=== PATIENT | male | born 1965 | race Caucasian/White ===

== ENCOUNTER 2017-04-06 17:13 | Emergency (ER) | payer OTHER ==
[~2017-04-06] VITALS: Ht 175.3 cm; Wt 95.2 kg
[~2017-04-06 17:13] MED LIST: ALBU90OI INH; AZIT250 PO; CODGUAEL PO; DIAZ5 PO; DOCU100 PO; GABA100 PO; HYDACE5325 PO; HYDCOR2.5A PR; HYDR1TAB94 PO; Keflex500 MG PO; LEVFLO500 PO; LIDO2L MM; METPRE4DP PO; MONDOXYNE NL100 MG PO; Monodox100 MG PO; NAPR500 PO; Nix Lice Treatm59 ML TOP; Norco 5-325 Ta1 EACH PO; OXYACE5T PO; PRED20 PO; PRODEXEL PO; Prednisone20 MG PO; SPACE CHAMBER1 EACH MC; Zithromax250 MG PO
[2017-04-06] MEDS ORDERED: (None)20 M1 PO (19:20)
[2017-04-06] MEDS ORDERED: Zithromax250 MG PO (19:20)
[2017-04-06] MEDS ORDERED: ALBU90OI INH (19:20)
== END 2017-04-06 19:28 | disposition home or self-care (01) ==
LOC: ER 17:13
DX: J44.9 Chronic obstructive pulmonary disease, unspecified (principal); Z90.49 Acquired absence of other specified parts of digestive tract; F17.200 Nicotine dependence, unspecified, uncomplicated
CPT/HCPCS: 71046; 99283

== ENCOUNTER 2017-05-07 19:23 | Emergency (ER) | payer SELFPAY ==
[~2017-05-07] VITALS: Ht 175.3 cm; Wt 93.0 kg
[~2017-05-07 19:23] MED LIST changes: +(None)20 M1 PO
== END 2017-05-07 22:20 | disposition home or self-care (01) ==
LOC: ER 19:23
DX: S06.0X0A Concussion without loss of consciousness, initial encounter (principal); S13.9XXA Sprain of joints and ligaments of unspecified parts of neck, initial encounter; F17.210 Nicotine dependence, cigarettes, uncomplicated; Z86.19 Personal history of other infectious and parasitic diseases; Z90.49 Acquired absence of other specified parts of digestive tract; Z90.89 Acquired absence of other organs; V49.9XXA Car occupant (driver) (passenger) injured in unspecified traffic accident, initial encounter
CPT/HCPCS: 70450; 72125; 96372; 99284; J1885; L0160; Q0163

== ENCOUNTER 2017-05-14 17:17 | Emergency (ER) | payer OTHER ==
[~2017-05-14] VITALS: Ht 175.3 cm; Wt 95.2 kg
[2017-05-14] MEDS ORDERED: Nystatin15 GM TOP (17:56)
== END 2017-05-14 18:05 | disposition home or self-care (01) ==
LOC: ER 17:17
DX: N47.6 Balanoposthitis (principal); B37.49 Other urogenital candidiasis; F17.210 Nicotine dependence, cigarettes, uncomplicated; Z86.19 Personal history of other infectious and parasitic diseases; Z90.49 Acquired absence of other specified parts of digestive tract
CPT/HCPCS: 99283

== ENCOUNTER 2017-05-20 17:02 | Emergency (ER) | payer OTHER ==
[~2017-05-20 17:02] MED LIST changes: +Nystatin15 GM TOP
== END 2017-05-20 18:43 | disposition left against medical advice (07) ==
LOC: ER 17:02
DX: Z53.21 Procedure and treatment not carried out due to patient leaving prior to being seen by health care provider (principal)

== ENCOUNTER 2017-05-22 15:41 | Emergency (ER) | payer OTHER ==
[~2017-05-22] VITALS: Ht 175.3 cm; Wt 95.2 kg
[2017-05-22] MEDS ORDERED: Bactrim Ds Tab1 EACH PO (16:25)
== END 2017-05-22 16:45 | disposition home or self-care (01) ==
LOC: ER 15:41
DX: L03.011 Cellulitis of right finger (principal); F17.210 Nicotine dependence, cigarettes, uncomplicated; Z86.19 Personal history of other infectious and parasitic diseases
CPT/HCPCS: 29130; 99282

== ENCOUNTER 2017-06-29 22:22 | Emergency (ER) | payer OTHER ==
[~2017-06-29] VITALS: Ht 175.3 cm; Wt 95.2 kg
[~2017-06-29 22:22] MED LIST changes: +Bactrim Ds Tab1 EACH PO
[2017-06-29 23:15] LABS: Source, Urine Clean Catch
[2017-06-29 23:17] LABS: Bilirubin, Urine Neg (Neg); Blood, Urine 4+ (Neg); Glucose Qualitative, Urine Neg (Neg); Ketones, Urine Neg (Neg); Leukocyte Esterase, Urine Neg (Neg); Nitrite, Urine Neg (Neg); Protein, Urine 1+ (Neg); Specific Gravity, Urine 1.025 (1.003-1.022); Urobilinogen, Urine 1+ (Normal)
[2017-06-29 23:26] LABS: Appearance, Urine Hazy (Clear); Bacteria Not Seen /hpf; Color, Urine Yellow (P-Yellow); Mucus Mod (0-Heavy); Red Blood Cells, Urine 25-50 /hpf (0-2); Squamous Epithelial Cells Not Seen /hpf (Few); White Blood Cells, Urine Not Seen /hpf (0-5)
[2017-06-29 23:37] LABS: BASOPHILS ABSOLUTE AUTO 0.05 K/mm3 (0.00-0.23); BASOPHILS PERCENT AUTO 1 % (0-2); EOSINOPHILS ABSOLUTE AUTO 0.58 K/mm3 (0.00-0.68); EOSINOPHILS PERCENT AUTO 8 % (0-6); Hematocrit 44.6 % (37.0-53.0); Hemoglobin 15.5 g/dL (13.5-17.5); IMMATURE GRAN ABSOLUTE AUTO 0.05 K/mm3 (0.00-0.10); IMMATURE GRAN PERCENT AUTO 1 % (0-1); LYMPHOCYTES PERCENT AUTO 34 % (21-46); MONOCYTES ABSOLUTE AUTO 0.46 K/mm3 (0.16-1.47); MONOCYTES PERCENT AUTO 6 % (4-13); Mean Corpuscular HGB 32.4 pg (26.0-34.0); Mean Corpuscular HGB Conc 34.8 g/dL (31.5-36.5); Mean Corpuscular Volume 93 fL (80-100); Mean Platelet Volume 9.5 fL (9.1-12.4); NEUTROPHILS ABSOLUTE AUTO 3.77 K/mm3 (1.96-9.15); NEUTROPHILS PERCENT AUTO 51 % (41-73); Platelet Count 200 K/mm3 (150-400); RDW Coefficient Variation 12.1 % (11.7-14.2); RDW Standard Deviation 41.9 fL (35.1-46.3); Red Blood Cell Count 4.78 M/mm3 (4.30-5.90); White Blood Cell Count 7.41 K/mm3 (4.00-11.30)
[2017-06-29 23:53] LABS: Anion Gap 9 mmol/L (6-16); Blood Urea Nitrogen 11 mg/dL (8-24); Bun/Creatinine Ratio 13.1 (12.0-20.0); CO2, Blood 26 mmol/L (21-32); Calcium, Blood 8.6 mg/dL (8.5-10.1); Chloride, Blood 106 mmol/L (98-108); Creatinine, Blood 0.84 mg/dL (0.60-1.20); Glomerular Filtration Rate >60 (60-); Glucose, Blood 83 mg/dL (70-99); Potassium, Blood 4.2 mmol/L (3.5-5.5); Sodium, Blood 141 mmol/L (136-145)
[2017-06-30] MEDS ORDERED: Vibramycin100 MG PO (01:07)
== END 2017-06-30 01:11 | disposition home or self-care (01) ==
LOC: ER 22:22
PROVIDERS: Emergency Medicine
DX: R31.9 Hematuria, unspecified (principal); A64 Unspecified sexually transmitted disease; F17.210 Nicotine dependence, cigarettes, uncomplicated
CPT/HCPCS: 80048; 81001; 85025; 96372; 99283; J0696

== ENCOUNTER 2017-08-27 11:19 | Emergency (ER) | payer OTHER ==
[~2017-08-27] VITALS: Ht 177.8 cm; Wt 99.8 kg
[~2017-08-27 11:19] MED LIST changes: +Vibramycin100 MG PO
== END 2017-08-27 12:42 | disposition home or self-care (01) ==
LOC: ER 11:19
DX: M25.462 Effusion, left knee (principal); F17.210 Nicotine dependence, cigarettes, uncomplicated; Z86.19 Personal history of other infectious and parasitic diseases; Z90.49 Acquired absence of other specified parts of digestive tract; Z98.890 Other specified postprocedural states
CPT/HCPCS: 99281

== ENCOUNTER 2017-09-26 11:13 | Emergency (ER) | payer OTHER ==
[~2017-09-26] VITALS: Ht 177.8 cm; Wt 108.9 kg
[2017-09-26] MEDS ORDERED: SLEEPING MEDICATION (11:44)
[2017-09-26] MEDS ORDERED: DEPRESSION (11:44)
[2017-09-26] MEDS ORDERED: CRUTCH4 XX (12:09)
[2017-09-26] MEDS ORDERED: CEPH500 PO (12:09)
== END 2017-09-26 12:12 | disposition home or self-care (01) ==
LOC: ER 11:13
DX: S90.32XA Contusion of left foot, initial encounter (principal); F17.210 Nicotine dependence, cigarettes, uncomplicated; F32.9 Major depressive disorder, single episode, unspecified; V29.9XXA Motorcycle rider (driver) (passenger) injured in unspecified traffic accident, initial encounter
CPT/HCPCS: 73630; 99283

== ENCOUNTER 2017-10-20 20:07 | Emergency (ER) | payer OTHER ==
[~2017-10-20] VITALS: Ht 177.8 cm; Wt 95.2 kg
[~2017-10-20 20:07] MED LIST changes: +CEPH500 PO; +CRUTCH4 XX; +DEPRESSION; +SLEEPING MEDICATION
[2017-10-20] MEDS ORDERED: Zithromax250 MG PO (22:27)
[2017-10-20] MEDS ORDERED: Ra Anti-Tussiv237 ML PO (22:27)
== END 2017-10-20 22:25 | disposition home or self-care (01) ==
LOC: ER 20:07
DX: J18.9 Pneumonia, unspecified organism (principal); Z79.899 Other long term (current) drug therapy; F17.210 Nicotine dependence, cigarettes, uncomplicated
CPT/HCPCS: 71046; 93005; 93010; 99283-25

== ENCOUNTER 2020-02-15 02:02 | Emergency (ER) | payer OTHER ==
[~2020-02-15] VITALS: Ht 175.3 cm; Wt 99.8 kg
[~2020-02-15 02:02] MED LIST changes: +Ra Anti-Tussiv237 ML PO
[2020-02-15] MEDS ORDERED: Norco 10-325 T1 EACH PO (03:54)
[2020-02-15] MEDS ORDERED: ONDA4ODT MM (03:54)
== END 2020-02-15 04:14 | disposition home or self-care (01) ==
LOC: ER 02:02
DX: S82.851A Displaced trimalleolar fracture of right lower leg, initial encounter for closed fracture (principal); F17.210 Nicotine dependence, cigarettes, uncomplicated; Z79.899 Other long term (current) drug therapy; V18.4XXA Pedal cycle driver injured in noncollision transport accident in traffic accident, initial encounter; Y93.55 Activity, bike riding; Y92.410 Unspecified street and highway as the place of occurrence of the external cause
CPT/HCPCS: 27818; 36415; 73600; 73610; 96374-59; 96375-59; 99152; 99283-25; A9270; A9270-GY; J1170; J1885; J2704; J7030

== ENCOUNTER 2020-02-21 15:17 | Emergency (ER) | payer OTHER ==
[~2020-02-21] VITALS: Ht 175.3 cm; Wt 99.8 kg
[~2020-02-21 15:17] MED LIST changes: +Norco 10-325 T1 EACH PO; +ONDA4ODT MM
== END 2020-02-21 17:00 | disposition home or self-care (01) ==
LOC: ER 15:17
DX: S82.851A Displaced trimalleolar fracture of right lower leg, initial encounter for closed fracture (principal); F17.210 Nicotine dependence, cigarettes, uncomplicated; Z79.899 Other long term (current) drug therapy; V19.9XXA Pedal cyclist (driver) (passenger) injured in unspecified traffic accident, initial encounter; Y92.410 Unspecified street and highway as the place of occurrence of the external cause
CPT/HCPCS: 99282

== ENCOUNTER 2020-02-27 10:38 | Day surgery (SDC) | payer OTHER ==
[~2020-02-27] VITALS: Ht 175.3 cm; Wt 101.7 kg
--- NOTE | 2020-02-27 11:37 | NUR ---
02/27/20 Stevo7 Sirisha Narayanan FIRST IV ATTEMPT IN LH. INFILTRATED.
== END 2020-02-27 16:40 | disposition home or self-care (01) ==
LOC: ORSCSDS 10:38
PROVIDERS: Podiatrist Foot & Ankle Surgery
PROC: 0QSJ04Z Reposition Right Fibula with Internal Fixation Device, Open Approach (ICD-10-PCS; principal; 2020-02-27 12:00)
PROC: 0QSG04Z Reposition Right Tibia with Internal Fixation Device, Open Approach (ICD-10-PCS; principal; 2020-02-27 12:00)
DX: S82.851A Displaced trimalleolar fracture of right lower leg, initial encounter for closed fracture (principal); I10 Essential (primary) hypertension; J45.909 Unspecified asthma, uncomplicated; F17.210 Nicotine dependence, cigarettes, uncomplicated; B19.20 Unspecified viral hepatitis C without hepatic coma
CPT/HCPCS: C1713; J0171; J0690; J1100; J1885; J2250; J2405; J2704; J3010; J7120

== ENCOUNTER 2020-03-08 11:37 | Emergency (ER) | payer OTHER ==
[~2020-03-08] VITALS: Ht 175.3 cm; Wt 99.8 kg
[2020-03-08 13:41] LABS: Alanine Aminotransfer (ALT/SGP 42 U/L (12-78); Albumin, Blood 2.4 g/dL (3.4-5.0); Albumin/Globulin Ratio 0.5 (0.8-1.8); Alk Phos 101 U/L (50-136); Anion Gap 7 mmol/L (6-16); Aspartate Aminotrans (AST/SGOT 34 U/L (12-37); Bilirubin, Total 0.3 mg/dL (0.1-1.0); Blood Urea Nitrogen 9 mg/dL (8-24); Bun/Creatinine Ratio 13.8 (12.0-20.0); CO2, Blood 27 mmol/L (21-32); Calcium, Blood 8.9 mg/dL (8.5-10.1); Chloride, Blood 97 mmol/L (98-108); Creatinine, Blood 0.65 mg/dL (0.60-1.20); Glomerular Filtration Rate >60 (60-); Glucose, Blood 125 mg/dL (70-99); Potassium, Blood 4.5 mmol/L (3.5-5.5); Sodium, Blood 131 mmol/L (136-145); Total Protein, Blood 7.4 g/dL (6.4-8.2)
[2020-03-08 14:14] LABS: BASOPHILS ABSOLUTE AUTO 0.06 K/mm3 (0.00-0.23); BASOPHILS PERCENT AUTO 1 % (0-2); EOSINOPHILS ABSOLUTE AUTO 0.22 K/mm3 (0.00-0.68); EOSINOPHILS PERCENT AUTO 2 % (0-6); Hematocrit 33.8 % (37.0-53.0); Hemoglobin 11.7 g/dL (13.5-17.5); IMMATURE GRAN ABSOLUTE AUTO 0.21 K/mm3 (0.00-0.10); IMMATURE GRAN PERCENT AUTO 2 % (0-1); LYMPHOCYTES ABSOLUTE AUTO 1.66 K/mm3 (0.84-5.20); LYMPHOCYTES PERCENT AUTO 13 % (21-46); MONOCYTES ABSOLUTE AUTO 1.29 K/mm3 (0.16-1.47); MONOCYTES PERCENT AUTO 10 % (4-13); Mean Corpuscular HGB 30.7 pg (26.0-34.0); Mean Corpuscular HGB Conc 34.6 g/dL (31.5-36.5); Mean Corpuscular Volume 89 fL (80-100); NEUTROPHILS ABSOLUTE AUTO 9.64 K/mm3 (1.96-9.15); NEUTROPHILS PERCENT AUTO 74 % (41-73); Platelet Count 540 K/mm3 (150-400); RDW Coefficient Variation 11.2 % (11.7-14.2); RDW Standard Deviation 36.1 fL (35.1-46.3); Red Blood Cell Count 3.81 M/mm3 (4.30-5.90); White Blood Cell Count 13.08 K/mm3 (4.00-11.30)
[2020-03-08] MEDS ORDERED: SULTRIDS PO ×2 (15:06→16:17)
[2020-03-08] MEDS ORDERED: OXYACE7.5T PO (15:06)
[2020-03-08] MEDS ORDERED: Percocet 7.5-31 EACH PO (16:18)
== END 2020-03-08 17:14 | disposition home or self-care (01) ==
LOC: ER 11:37
PROVIDERS: Physician Assistant
DX: T81.41XA Infection following a procedure, superficial incisional surgical site, initial encounter (principal); F17.210 Nicotine dependence, cigarettes, uncomplicated; Z96.698 Presence of other orthopedic joint implants
CPT/HCPCS: 36415; 73610; 80053; 85025; 87070; 87075; 87077; 87147; 87186; 87205; 96365; 96366; 96375; 96376; 99283-25; J1170; J2405; J3370; J7050

== ENCOUNTER 2020-03-10 09:31 | Inpatient (IN) | payer OTHER ==
[~2020-03-10] VITALS: Ht 175.3 cm; Wt 99.8 kg
[~2020-03-10 09:31] MED LIST changes: +OXYACE7.5T PO; +Percocet 7.5-31 EACH PO; +SULTRIDS PO
[2020-03-10 12:50] LABS: BASOPHILS ABSOLUTE AUTO 0.08 K/mm3 (0.00-0.23); BASOPHILS PERCENT AUTO 1 % (0-2); EOSINOPHILS ABSOLUTE AUTO 0.23 K/mm3 (0.00-0.68); EOSINOPHILS PERCENT AUTO 2 % (0-6); Hemoglobin 11.5 g/dL (13.5-17.5); IMMATURE GRAN PERCENT AUTO 3 % (0-1); LYMPHOCYTES ABSOLUTE AUTO 2.31 K/mm3 (0.84-5.20); LYMPHOCYTES PERCENT AUTO 18 % (21-46); MONOCYTES ABSOLUTE AUTO 1.06 K/mm3 (0.16-1.47); MONOCYTES PERCENT AUTO 8 % (4-13); Mean Corpuscular HGB 30.7 pg (26.0-34.0); Mean Corpuscular HGB Conc 33.8 g/dL (31.5-36.5); Mean Corpuscular Volume 91 fL (80-100); NEUTROPHILS ABSOLUTE AUTO 8.86 K/mm3 (1.96-9.15); NEUTROPHILS PERCENT AUTO 68 % (41-73); Platelet Count 546 K/mm3 (150-400); RDW Coefficient Variation 11.5 % (11.7-14.2); RDW Standard Deviation 38.1 fL (35.1-46.3); Red Blood Cell Count 3.75 M/mm3 (4.30-5.90); White Blood Cell Count 12.94 K/mm3 (4.00-11.30)
[2020-03-10 13:16] LABS: Alanine Aminotransfer (ALT/SGP 38 U/L (12-78); Albumin, Blood 2.7 g/dL (3.4-5.0); Albumin/Globulin Ratio 0.5 (0.8-1.8); Alk Phos 100 U/L (50-136); Anion Gap 9 mmol/L (6-16); Aspartate Aminotrans (AST/SGOT 34 U/L (12-37); Bilirubin, Total 0.4 mg/dL (0.1-1.0); Blood Urea Nitrogen 13 mg/dL (8-24); Bun/Creatinine Ratio 14.5 (12.0-20.0); CO2, Blood 24 mmol/L (21-32); Calcium, Blood 9.5 mg/dL (8.5-10.1); Chloride, Blood 96 mmol/L (98-108); Globulin, Blood 5.2 g/dL (2.2-4.0); Glomerular Filtration Rate >60 (60-); Glucose, Blood 111 mg/dL (70-99); Potassium, Blood 4.7 mmol/L (3.5-5.5); Sodium, Blood 129 mmol/L (136-145); Total Protein, Blood 7.9 g/dL (6.4-8.2)
[2020-03-10 13:56] LABS: Influenza A, PCR Negative (NEGATIVE); Influenza B, PCR Negative (NEGATIVE); Resp Syncytial Virus, PCR Negative (NEGATIVE); SARS-Cov-2 (COVID-19) PCR, MMC Negative (NEGATIVE)
--- NOTE | 2020-03-10 18:17 | NUR ---
ADMISSION: REPORT RECIEVED FROM ED RN. PT TO UNIT AT ABOUT 1145. UPON ASSESSMENT PT IS A/O, VSS. R LEG DRESSED IN GAUZE AND JIMI, PT REPORTS DR. LUKE DRESSED EARLIER THAT DAY, NO DRAINAGE NOTED. SURGICAL PACKET COMPLETED AND IV ABX INFUSED. MEDICATED FOR PAIN PER EMAR. PT NPO, AWAITING SURGERY TIME WILL CTM
--- NOTE | 2020-03-10 18:19 | NUR ---
PT REPORTED PAIN NOT MANAGED WELL WITH 50 MCG FENTANYAL Q4, CALL MADE TO DR. FISHMAN, SEE NEW ORDER
--- NOTE | 2020-03-10 18:20 | NUR ---
PT TO OR AT ABOUT 1800
--- NOTE | 2020-03-10 20:28 | NUR ---
PACU TO SURGICAL FLOOR PT ARRIVED TO UNIT AT APPROX 2015 TODAY VIA HOSPITAL BED FROM PACU. PT IS A/OX4 WITH VSS. ON RA, DENIES SOB. LUNG SOUNDS COARSE T/0, EDU/ENCOURAGED TURN/COUGH/DB. WILL PROVIDE I.S. PER ORDER. JIMI WRAP TO RLE CDI, RLE ELEVATED ON PILLOWS. PT ABLE TO WIGGLE TOES, DENIES N/T. LAMBERT CL AT THIS TIME. REPORTS PAIN TOLERABLE. WILL CONT TO MONITOR POST-OP VITALS PER ORDER. PT CURRENTLY RESTING IN BED WITH CALL LIGHT IN REACH, DENIES NEEDS. WILL CTM
--- NOTE | 2020-03-11 05:05 | NUR ---
SHIFT SUMMARY POD 1 I&D OF RIGHT ANKLE. PT IS A/OX4 WITH VSS, ON RA. SPLINT AND JIMI WRAP TO RLE APPEARS CDI. WOUND VAC IN PLACE DRAINING SMALL AMOUNT OF SEROUS FLUID. RLE ELEVATED ON PILLOWS W/ICE THERAPY APPLIED PER ORDERS. PAIN MANAGED WITH REPOSITIONING AND 50MCG FENTANYL Q4. NEW ORDERS OBTAINED BY REBEKA EDMONDSON FROM HOSPITALIST FOR CIWA AND WITHDRAWING MEDICATIONS- SEE EMAR. PT EXPERIENCING COOL SWEATS, MILD TREMORS, AND DISCOMFORT. MEDICATED PER ORDERS. PT REPORTS RELIEF. IVF AND ABX INFUSING PER ORDERS. NEW POWERGLIDE PLACED THIS SHIFT. LAMBERT PO INTAKE, DENIES N/V. PT CURRENTLY RESTING IN BED WITH CALL LIGHT IN REACH. WILL CONT TO MONITOR PT AND GIVE REPORT TO ONCOMING RN.
--- NOTE | 2020-03-11 08:48 | NUR ---
03/11/20 0848 Evita Alvarez VERIFICATIONS: EDIT CHART.
[2020-03-11 09:15] LABS: BASOPHILS ABSOLUTE AUTO 0.04 K/mm3 (0.00-0.23); BASOPHILS PERCENT AUTO 0 % (0-2); EOSINOPHILS ABSOLUTE AUTO 0.01 K/mm3 (0.00-0.68); EOSINOPHILS PERCENT AUTO 0 % (0-6); Hematocrit 27.1 % (37.0-53.0); Hemoglobin 9.1 g/dL (13.5-17.5); IMMATURE GRAN ABSOLUTE AUTO 0.35 K/mm3 (0.00-0.10); IMMATURE GRAN PERCENT AUTO 2 % (0-1); LYMPHOCYTES ABSOLUTE AUTO 1.39 K/mm3 (0.84-5.20); LYMPHOCYTES PERCENT AUTO 8 % (21-46); MONOCYTES ABSOLUTE AUTO 0.95 K/mm3 (0.16-1.47); MONOCYTES PERCENT AUTO 5 % (4-13); Mean Corpuscular HGB 30.7 pg (26.0-34.0); Mean Corpuscular HGB Conc 33.6 g/dL (31.5-36.5); Mean Corpuscular Volume 92 fL (80-100); Mean Platelet Volume 9.4 fL (9.1-12.4); NEUTROPHILS ABSOLUTE AUTO 14.73 K/mm3 (1.96-9.15); NEUTROPHILS PERCENT AUTO 84 % (41-73); Platelet Count 520 K/mm3 (150-400); RDW Coefficient Variation 11.6 % (11.7-14.2); Red Blood Cell Count 2.96 M/mm3 (4.30-5.90); White Blood Cell Count 17.47 K/mm3 (4.00-11.30)
[2020-03-11 09:38] LABS: Anion Gap 6 mmol/L (6-16); Blood Urea Nitrogen 18 mg/dL (8-24); Bun/Creatinine Ratio 21.1 (12.0-20.0); CO2, Blood 25 mmol/L (21-32); Calcium, Blood 8.4 mg/dL (8.5-10.1); Chloride, Blood 104 mmol/L (98-108); Creatinine, Blood 0.85 mg/dL (0.60-1.20); Glomerular Filtration Rate >60 (60-); Glucose, Blood 135 mg/dL (70-99); Potassium, Blood 4.8 mmol/L (3.5-5.5); Sodium, Blood 135 mmol/L (136-145)
[2020-03-11 15:39] LABS: Vancomycin, Trough 17.6 ug/mL (5.0-10.0)
--- NOTE | 2020-03-11 17:16 | NUR ---
SUMMARY PT CIWA ESCALATED TO 14 THIS AFTERNOON. MEDICATED PER ORDERS W/2MG ATIVAN. PT RESTING W/EYES CLOSED AT THIS TIME. WOUND VAC DRAINING SCANT AMOUNT SS DRAINAGE. ADMINISTERED IV ABX PER ORDERS. MEDICATED PER ORDERS FOR PAIN T/O SHIFT. PT WORKED W/THERAPY. HAD TWO BMS THIS SHIFT. IV INFUSING PER ORDERS. CALL LIGHT IN REACH.
--- NOTE | 2020-03-12 05:30 | NUR ---
SHIFT SUMMARY: PT S/P I&D TO RIGHT ANKLE. WOUND VAC IN PLACE AND DRAINING SS FLUID. CIWA RANGING BETWEEN 11-14. SHOWING SYMOTOMS OF AGITATION, TREMORS, SWEATS, ANXIETY AND HEADACHES. DENIES HALLUCINATIONS. BEING MEDICATED WITH 2MG OF ATIVAN AND 50MG LIBRIUM Q2H PER EMAR. PT ATTEMPTING TO GET OUT OF BED AT TIMES TO GO TO THE BATHROOM. FREQ REMINDED TO USE CALL LIGHT. BED ALARM ON FOR SAFETY. PT CURRENTLY APPEARS TO BE RESTING.
[2020-03-12 09:40] LABS: BASOPHILS ABSOLUTE AUTO 0.06 K/mm3 (0.00-0.23); BASOPHILS PERCENT AUTO 1 % (0-2); EOSINOPHILS ABSOLUTE AUTO 0.11 K/mm3 (0.00-0.68); EOSINOPHILS PERCENT AUTO 1 % (0-6); Hematocrit 26.7 % (37.0-53.0); Hemoglobin 8.9 g/dL (13.5-17.5); IMMATURE GRAN ABSOLUTE AUTO 0.49 K/mm3 (0.00-0.10); IMMATURE GRAN PERCENT AUTO 5 % (0-1); LYMPHOCYTES ABSOLUTE AUTO 2.16 K/mm3 (0.84-5.20); LYMPHOCYTES PERCENT AUTO 20 % (21-46); MONOCYTES ABSOLUTE AUTO 0.61 K/mm3 (0.16-1.47); MONOCYTES PERCENT AUTO 6 % (4-13); Mean Corpuscular HGB 31.1 pg (26.0-34.0); Mean Corpuscular HGB Conc 33.3 g/dL (31.5-36.5); Mean Corpuscular Volume 93 fL (80-100); Mean Platelet Volume 9.3 fL (9.1-12.4); NEUTROPHILS ABSOLUTE AUTO 7.54 K/mm3 (1.96-9.15); NEUTROPHILS PERCENT AUTO 69 % (41-73); Platelet Count 492 K/mm3 (150-400); RDW Coefficient Variation 11.7 % (11.7-14.2); RDW Standard Deviation 39.7 fL (35.1-46.3); Red Blood Cell Count 2.86 M/mm3 (4.30-5.90); White Blood Cell Count 10.97 K/mm3 (4.00-11.30)
[2020-03-12 10:00] LABS: Anion Gap 4 mmol/L (6-16); Blood Urea Nitrogen 10 mg/dL (8-24); Bun/Creatinine Ratio 11.8 (12.0-20.0); CO2, Blood 28 mmol/L (21-32); Calcium, Blood 8.7 mg/dL (8.5-10.1); Chloride, Blood 108 mmol/L (98-108); Creatinine, Blood 0.85 mg/dL (0.60-1.20); Glomerular Filtration Rate >60 (60-); Glucose, Blood 146 mg/dL (70-99); Potassium, Blood 4.3 mmol/L (3.5-5.5); Sodium, Blood 140 mmol/L (136-145)
[2020-03-12] MEDS ORDERED: ACET325 PO (16:02)
[2020-03-12] MEDS ORDERED: TRAM50 PO (16:02)
[2020-03-12] MEDS ORDERED: VISBIOME PO (16:03)
[2020-03-12] MEDS ORDERED: LINE600 PO (16:05)
[2020-03-12] MEDS ORDERED: SULTRIDS PO (16:07)
--- NOTE | 2020-03-12 18:41 | NUR ---
1814 wound vac dressing changed and patient placed on home wound vac. sutures intact on plantar aspect of right leg. one black foam applied to outer ankle dressing. one black piece of foam placed to inner side of ankle. wopund vac y sited to vacumn and pressure maintained at 120. discharge information paperwork reviewed with patient-pt turned away from me in his bed and states he wants to sleep. discharge instructions reviewed with patients mother. pts mother instructed on discharge. instructed patient verbally that he must take antibiotics as prescribed, maintain strict nwb to right leg, leave wound vac i place and keep dressing clean and dry. wound vac instruction manual and supplies given to patients mother. pt discharged home with his mother at 183
--- NOTE | 2020-03-12 19:46 | NUR ---
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 PTS MOTHER STATES SHE UNDERSTANDS THE IMPORTANCE OF PT TAKING HIS ANTIBIOTICS AND THAT SHE WILL OBTAIN THEM FROM PHARMACY SOON THEY OPEN IN THE MORNING. PTS MOTHER ALSO CONCERNED THAT WOUND VAC IS NOT FUNCTIONING. REVIEWED WOUND VAC AND PER PTS MOTHER SHOWS IT IS HOLDING PRESSURE AT 120MM.PTS MOTHER STATES SHE WILL CALL SURGICAL FLOOR IF HAS ANY FURTHER CONCERNS REGARDING WOUND VAC
== END 2020-03-12 18:39 | disposition home or self-care (01) | DRG 857 ==
LOC: ER 09:31 → SURS 12:31 → ER 19:45 → SURS 03-12 18:39
PROVIDERS: Physician Assistant; Podiatrist Foot & Ankle Surgery; ADMIT Internal Medicine
PROC: 0JDN0ZZ Extraction of Right Lower Leg Subcutaneous Tissue and Fascia, Open Approach (ICD-10-PCS; principal; 2020-03-10 20:00)
DX: T81.49XA Infection following a procedure, other surgical site, initial encounter (principal); T81.30XA Disruption of wound, unspecified, initial encounter; F10.239 Alcohol dependence with withdrawal, unspecified; F19.10 Other psychoactive substance abuse, uncomplicated; F17.210 Nicotine dependence, cigarettes, uncomplicated; V19.9XXA Pedal cyclist (driver) (passenger) injured in unspecified traffic accident, initial encounter; Y92.9 Unspecified place or not applicable; S82.851A Displaced trimalleolar fracture of right lower leg, initial encounter for closed fracture; Z20.828 Contact with and (suspected) exposure to other viral communicable diseases
CPT/HCPCS: 0241U; 36415; 80048; 80053; 80202; 82565; 83605; 85025; 87040; 96374; 97110; 97116; 97162; 99284-25; A9270; C1751; C9113; G0480; J0696; J1100; J1885; J2060; J2250; J2405; J2704; J3010; J3370; J7030; J7050; J7120

== ENCOUNTER 2021-02-20 04:23 | Day surgery (SDC) | payer OTHER ==
[~2021-02-20 04:23] MED LIST changes: +ACET325 PO; +GABA400; +LINE600 PO; +PROM25; +TRAM50 PO; +VISBIOME PO
== END 2021-02-20 22:56 | disposition home or self-care (01) ==
LOC: WOUND 04:23
DX: L97.312 Non-pressure chronic ulcer of right ankle with fat layer exposed (principal); S82.851K Displaced trimalleolar fracture of right lower leg, subsequent encounter for closed fracture with nonunion; X58.XXXD Exposure to other specified factors, subsequent encounter; L03.115 Cellulitis of right lower limb; I87.2 Venous insufficiency (chronic) (peripheral); I73.9 Peripheral vascular disease, unspecified; F11.20 Opioid dependence, uncomplicated; F17.210 Nicotine dependence, cigarettes, uncomplicated
CPT/HCPCS: A9270; G0463

== ENCOUNTER 2021-03-06 01:33 | Day surgery (SDC) | payer OTHER | END 2021-03-06 12:00 | disposition home or self-care (01) | LOC: WOUND 01:33 | DX: L97.312 Non-pressure chronic ulcer of right ankle with fat layer exposed (principal); S82.851K Displaced trimalleolar fracture of right lower leg, subsequent encounter for closed fracture with nonunion; X58.XXXA Exposure to other specified factors, initial encounter; L03.115 Cellulitis of right lower limb; I87.2 Venous insufficiency (chronic) (peripheral); I73.9 Peripheral vascular disease, unspecified; F11.20 Opioid dependence, uncomplicated | CPT/HCPCS: A9270 ==

== ENCOUNTER 2021-03-20 04:55 | Day surgery (SDC) | payer OTHER | END 2021-03-20 23:15 | disposition home or self-care (01) | LOC: WOUND 04:55 | DX: L97.312 Non-pressure chronic ulcer of right ankle with fat layer exposed (principal); S82.851K Displaced trimalleolar fracture of right lower leg, subsequent encounter for closed fracture with nonunion; X58.XXXA Exposure to other specified factors, initial encounter; L03.115 Cellulitis of right lower limb; I87.2 Venous insufficiency (chronic) (peripheral); I73.9 Peripheral vascular disease, unspecified; F11.20 Opioid dependence, uncomplicated | CPT/HCPCS: A9270 ==

== ENCOUNTER 2021-04-08 04:54 | Day surgery (SDC) | payer OTHER | END 2021-04-08 23:42 | disposition home or self-care (01) | LOC: WOUND 04:54 | DX: L97.812 Non-pressure chronic ulcer of other part of right lower leg with fat layer exposed (principal); L97.312 Non-pressure chronic ulcer of right ankle with fat layer exposed; S82.851D Displaced trimalleolar fracture of right lower leg, subsequent encounter for closed fracture with routine healing; S82.851K Displaced trimalleolar fracture of right lower leg, subsequent encounter for closed fracture with nonunion; L03.115 Cellulitis of right lower limb; I87.2 Venous insufficiency (chronic) (peripheral); I73.9 Peripheral vascular disease, unspecified; F11.20 Opioid dependence, uncomplicated | CPT/HCPCS: A9270 ==

== ENCOUNTER 2021-04-15 01:43 | Day surgery (SDC) | payer OTHER | END 2021-04-15 22:37 | disposition home or self-care (01) | LOC: WOUND 01:43 | DX: L97.312 Non-pressure chronic ulcer of right ankle with fat layer exposed (principal); L97.812 Non-pressure chronic ulcer of other part of right lower leg with fat layer exposed; I87.2 Venous insufficiency (chronic) (peripheral); I73.9 Peripheral vascular disease, unspecified; F11.20 Opioid dependence, uncomplicated; L03.115 Cellulitis of right lower limb | CPT/HCPCS: A9270 ==

== ENCOUNTER 2021-04-22 00:34 | Day surgery (SDC) | payer OTHER | END 2021-04-22 22:50 | disposition home or self-care (01) | LOC: WOUND 00:34 | DX: L97.312 Non-pressure chronic ulcer of right ankle with fat layer exposed (principal); L97.812 Non-pressure chronic ulcer of other part of right lower leg with fat layer exposed; I87.2 Venous insufficiency (chronic) (peripheral); I73.9 Peripheral vascular disease, unspecified; L03.115 Cellulitis of right lower limb; F11.20 Opioid dependence, uncomplicated; B19.20 Unspecified viral hepatitis C without hepatic coma; S82.851K Displaced trimalleolar fracture of right lower leg, subsequent encounter for closed fracture with nonunion; V19.9XXD Pedal cyclist (driver) (passenger) injured in unspecified traffic accident, subsequent encounter | CPT/HCPCS: A9270 ==

== ENCOUNTER 2021-04-24 05:03 | Day surgery (SDC) | payer OTHER | END 2021-04-24 12:00 | disposition home or self-care (01) | LOC: WOUND 05:03 | DX: S82.851K Displaced trimalleolar fracture of right lower leg, subsequent encounter for closed fracture with nonunion (principal); S82.851D Displaced trimalleolar fracture of right lower leg, subsequent encounter for closed fracture with routine healing; L03.115 Cellulitis of right lower limb; I87.2 Venous insufficiency (chronic) (peripheral); I73.9 Peripheral vascular disease, unspecified; F11.20 Opioid dependence, uncomplicated ==

== ENCOUNTER 2021-04-29 01:18 | Day surgery (SDC) | payer OTHER | END 2021-04-29 23:05 | disposition home or self-care (01) | LOC: WOUND 01:18 | DX: L97.812 Non-pressure chronic ulcer of other part of right lower leg with fat layer exposed (principal); L97.312 Non-pressure chronic ulcer of right ankle with fat layer exposed; L03.115 Cellulitis of right lower limb; I87.2 Venous insufficiency (chronic) (peripheral); I73.9 Peripheral vascular disease, unspecified; F11.20 Opioid dependence, uncomplicated; S82.841D Displaced bimalleolar fracture of right lower leg, subsequent encounter for closed fracture with routine healing; X58.XXXD Exposure to other specified factors, subsequent encounter | CPT/HCPCS: A9270 ==

== ENCOUNTER 2021-05-03 16:04 | Emergency (ER) | payer OTHER ==
[~2021-05-03] VITALS: Ht 175.3 cm; Wt 104.3 kg
[2021-05-03] MEDS ORDERED: NARCAN4 M1 (18:15)
== END 2021-05-03 18:49 | disposition home or self-care (01) ==
LOC: ER 16:04
DX: T40.2X1A Poisoning by other opioids, accidental (unintentional), initial encounter (principal); R51.9 Headache, unspecified; F17.210 Nicotine dependence, cigarettes, uncomplicated
CPT/HCPCS: 93005; 93010; 99284-25

== ENCOUNTER 2021-05-06 03:08 | Day surgery (SDC) | payer OTHER ==
[~2021-05-06 03:08] MED LIST changes: +NARCAN4 M1
== END 2021-05-07 02:24 | disposition home or self-care (01) ==
LOC: WOUND 03:08
DX: L97.312 Non-pressure chronic ulcer of right ankle with fat layer exposed (principal); I87.2 Venous insufficiency (chronic) (peripheral); I73.9 Peripheral vascular disease, unspecified; F11.20 Opioid dependence, uncomplicated; S82.851K Displaced trimalleolar fracture of right lower leg, subsequent encounter for closed fracture with nonunion; V19.9XXD Pedal cyclist (driver) (passenger) injured in unspecified traffic accident, subsequent encounter; B19.20 Unspecified viral hepatitis C without hepatic coma
CPT/HCPCS: A9270

== ENCOUNTER 2021-05-18 02:37 | Day surgery (SDC) | payer OTHER | END 2021-05-18 23:15 | disposition home or self-care (01) | LOC: WOUND 02:37 | DX: L97.312 Non-pressure chronic ulcer of right ankle with fat layer exposed (principal); L97.818 Non-pressure chronic ulcer of other part of right lower leg with other specified severity; S82.851K Displaced trimalleolar fracture of right lower leg, subsequent encounter for closed fracture with nonunion; X58.XXXD Exposure to other specified factors, subsequent encounter; L03.115 Cellulitis of right lower limb; I87.2 Venous insufficiency (chronic) (peripheral); I73.9 Peripheral vascular disease, unspecified; F11.20 Opioid dependence, uncomplicated | CPT/HCPCS: A9270 ==

== ENCOUNTER 2021-05-25 01:39 | Day surgery (SDC) | payer OTHER | END 2021-05-25 23:29 | disposition home or self-care (01) | LOC: WOUND 01:39 | DX: L97.316 Non-pressure chronic ulcer of right ankle with bone involvement without evidence of necrosis (principal); L97.812 Non-pressure chronic ulcer of other part of right lower leg with fat layer exposed; S82.851D Displaced trimalleolar fracture of right lower leg, subsequent encounter for closed fracture with routine healing; S82.851K Displaced trimalleolar fracture of right lower leg, subsequent encounter for closed fracture with nonunion; L03.115 Cellulitis of right lower limb; I87.2 Venous insufficiency (chronic) (peripheral); I73.9 Peripheral vascular disease, unspecified; F11.20 Opioid dependence, uncomplicated | CPT/HCPCS: A9270; G0463 ==

== ENCOUNTER 2021-06-01 03:03 | Day surgery (SDC) | payer OTHER | END 2021-06-01 23:33 | disposition home or self-care (01) | LOC: WOUND 03:03 | DX: L97.316 Non-pressure chronic ulcer of right ankle with bone involvement without evidence of necrosis (principal); S82.851D Displaced trimalleolar fracture of right lower leg, subsequent encounter for closed fracture with routine healing; S82.851K Displaced trimalleolar fracture of right lower leg, subsequent encounter for closed fracture with nonunion; L03.115 Cellulitis of right lower limb; I87.2 Venous insufficiency (chronic) (peripheral); I73.9 Peripheral vascular disease, unspecified; F11.20 Opioid dependence, uncomplicated | CPT/HCPCS: A9270 ==

== ENCOUNTER 2021-06-09 05:29 | Day surgery (SDC) | payer OTHER | END 2021-06-09 23:55 | disposition home or self-care (01) | LOC: WOUND 05:29 | DX: L97.812 Non-pressure chronic ulcer of other part of right lower leg with fat layer exposed (principal); S82.851K Displaced trimalleolar fracture of right lower leg, subsequent encounter for closed fracture with nonunion; L03.115 Cellulitis of right lower limb; I87.2 Venous insufficiency (chronic) (peripheral); I73.9 Peripheral vascular disease, unspecified; F11.20 Opioid dependence, uncomplicated ==

== ENCOUNTER 2021-06-16 04:42 | Day surgery (SDC) | payer OTHER | END 2021-06-16 23:52 | disposition home or self-care (01) | LOC: WOUND 04:42 | DX: L97.816 Non-pressure chronic ulcer of other part of right lower leg with bone involvement without evidence of necrosis (principal); I87.2 Venous insufficiency (chronic) (peripheral) ==

== ENCOUNTER 2021-06-23 02:18 | Day surgery (SDC) | payer OTHER | END 2021-06-23 23:36 | disposition home or self-care (01) | LOC: WOUND 02:18 | DX: L97.316 Non-pressure chronic ulcer of right ankle with bone involvement without evidence of necrosis (principal); S82.851K Displaced trimalleolar fracture of right lower leg, subsequent encounter for closed fracture with nonunion; L03.115 Cellulitis of right lower limb; I87.2 Venous insufficiency (chronic) (peripheral); I73.9 Peripheral vascular disease, unspecified; F11.20 Opioid dependence, uncomplicated; B19.20 Unspecified viral hepatitis C without hepatic coma | CPT/HCPCS: A9270 ==

== ENCOUNTER 2021-06-30 02:32 | Day surgery (SDC) | payer OTHER | END 2021-06-30 22:57 | disposition home or self-care (01) | LOC: WOUND 02:32 | DX: L97.316 Non-pressure chronic ulcer of right ankle with bone involvement without evidence of necrosis (principal); S82.851K Displaced trimalleolar fracture of right lower leg, subsequent encounter for closed fracture with nonunion; L03.115 Cellulitis of right lower limb; I87.2 Venous insufficiency (chronic) (peripheral); I73.9 Peripheral vascular disease, unspecified; F11.20 Opioid dependence, uncomplicated; B19.20 Unspecified viral hepatitis C without hepatic coma | CPT/HCPCS: A9270 ==

== ENCOUNTER 2021-07-07 08:00 | Day surgery (SDC) | payer OTHER | END 2021-07-07 23:59 | disposition home or self-care (01) | LOC: WOUND 08:00 | DX: L97.812 Non-pressure chronic ulcer of other part of right lower leg with fat layer exposed (principal); S82.851D Displaced trimalleolar fracture of right lower leg, subsequent encounter for closed fracture with routine healing; S82.851K Displaced trimalleolar fracture of right lower leg, subsequent encounter for closed fracture with nonunion; L03.115 Cellulitis of right lower limb; I87.2 Venous insufficiency (chronic) (peripheral); I73.9 Peripheral vascular disease, unspecified; F11.20 Opioid dependence, uncomplicated ==

== ENCOUNTER 2021-07-14 02:14 | Day surgery (SDC) | payer OTHER | END 2021-07-14 22:57 | disposition home or self-care (01) | LOC: WOUND 02:14 | DX: L97.312 Non-pressure chronic ulcer of right ankle with fat layer exposed (principal); L97.812 Non-pressure chronic ulcer of other part of right lower leg with fat layer exposed; S82.851D Displaced trimalleolar fracture of right lower leg, subsequent encounter for closed fracture with routine healing; S82.851K Displaced trimalleolar fracture of right lower leg, subsequent encounter for closed fracture with nonunion; L03.115 Cellulitis of right lower limb; I87.2 Venous insufficiency (chronic) (peripheral); I73.9 Peripheral vascular disease, unspecified; F11.20 Opioid dependence, uncomplicated | CPT/HCPCS: A9270 ==

== ENCOUNTER 2021-07-21 02:02 | Day surgery (SDC) | payer OTHER | END 2021-07-21 23:28 | disposition home or self-care (01) | LOC: WOUND 02:02 | DX: L97.312 Non-pressure chronic ulcer of right ankle with fat layer exposed (principal); S82.851D Displaced trimalleolar fracture of right lower leg, subsequent encounter for closed fracture with routine healing; I87.2 Venous insufficiency (chronic) (peripheral); I73.9 Peripheral vascular disease, unspecified; F11.20 Opioid dependence, uncomplicated | CPT/HCPCS: A9270 ==

== ENCOUNTER 2021-07-28 01:00 | Day surgery (SDC) | payer OTHER | END 2021-07-28 23:47 | disposition home or self-care (01) | LOC: WOUND 01:00 | DX: L97.312 Non-pressure chronic ulcer of right ankle with fat layer exposed (principal); S82.851K Displaced trimalleolar fracture of right lower leg, subsequent encounter for closed fracture with nonunion; X58.XXXD Exposure to other specified factors, subsequent encounter; L03.115 Cellulitis of right lower limb; I87.2 Venous insufficiency (chronic) (peripheral); I73.9 Peripheral vascular disease, unspecified; F11.20 Opioid dependence, uncomplicated | CPT/HCPCS: A9270 ==

== ENCOUNTER 2021-08-04 01:26 | Day surgery (SDC) | payer OTHER | END 2021-08-04 23:18 | disposition home or self-care (01) | LOC: WOUND 01:26 | DX: L97.312 Non-pressure chronic ulcer of right ankle with fat layer exposed (principal); S82.851K Displaced trimalleolar fracture of right lower leg, subsequent encounter for closed fracture with nonunion; L03.115 Cellulitis of right lower limb; I87.2 Venous insufficiency (chronic) (peripheral); F11.20 Opioid dependence, uncomplicated | CPT/HCPCS: A9270; G0463 ==

== ENCOUNTER 2021-08-12 01:49 | Day surgery (SDC) | payer OTHER | END 2021-08-12 23:38 | disposition home or self-care (01) | LOC: WOUND 01:49 | DX: L97.312 Non-pressure chronic ulcer of right ankle with fat layer exposed (principal); S82.851K Displaced trimalleolar fracture of right lower leg, subsequent encounter for closed fracture with nonunion; X58.XXXD Exposure to other specified factors, subsequent encounter; L03.115 Cellulitis of right lower limb; I87.2 Venous insufficiency (chronic) (peripheral); I73.9 Peripheral vascular disease, unspecified; F11.20 Opioid dependence, uncomplicated | CPT/HCPCS: 99406; A9270 ==

== ENCOUNTER 2021-09-28 02:34 | Day surgery (SDC) | payer OTHER | END 2021-09-28 23:19 | disposition home or self-care (01) | LOC: WOUND 02:34 | DX: L97.312 Non-pressure chronic ulcer of right ankle with fat layer exposed (principal); S82.851K Displaced trimalleolar fracture of right lower leg, subsequent encounter for closed fracture with nonunion; I87.2 Venous insufficiency (chronic) (peripheral); L03.115 Cellulitis of right lower limb; F11.20 Opioid dependence, uncomplicated; F17.210 Nicotine dependence, cigarettes, uncomplicated | CPT/HCPCS: 99406; A9270; G0463 ==

== ENCOUNTER 2022-01-27 15:26 | Emergency (ER) | payer OTHER ==
[~2022-01-27] VITALS: Ht 175.3 cm; Wt 93.0 kg
[2022-01-27] MEDS ORDERED: CEPH500 PO (16:55)
[2022-01-27] MEDS ORDERED: SULTRIDS PO (16:55)
== END 2022-01-27 17:04 | disposition home or self-care (01) ==
LOC: ER 15:26
DX: L03.113 Cellulitis of right upper limb (principal); F17.210 Nicotine dependence, cigarettes, uncomplicated
CPT/HCPCS: A9270